=== PATIENT | male | born 1970 | race Caucasian/White ===

== ENCOUNTER 2018-10-30 23:56 | Emergency (ER) | payer MEDICAID, OTHER ==
[~2018-10-30] VITALS: Ht 165.1 cm; Wt 60.7 kg
[~2018-10-30 23:56] MED LIST: DICL50TA11 PO
[2018-10-31] VITALS: Ht 165.1 cm; Wt 60.7 kg
[2018-10-31] MEDS ORDERED: FAMOTIDINE 20 MG TAB PO ONE (00:30)
[2018-10-31] MEDS ORDERED: IBUPROFEN 800 MG TAB PO ONE (00:30)
[2018-10-31 02:48] VITALS: BP 130/70; PULSE 64; RESP 15
== END 2018-10-31 02:53 | disposition home or self-care (01) ==
LOC: FTE 23:56
DX: M15.1 Heberden's nodes (with arthropathy) (principal)
CPT/HCPCS: 73130; Z7502; Z7610